=== PATIENT | female | born 1950 | race Caucasian/White ===

== ENCOUNTER 2017-11-21 11:20 | Day surgery (SDC) | payer BC, MEDICARE ==
[~2017-11-21] VITALS: Ht 149.9 cm; Wt 62.4 kg
[~2017-11-21 11:20] MED LIST: ASPI-1264 PO; CLOP75TA35 PO; SIMV40TA PO; VALA-7 PO
[2017-11-21] MEDS ORDERED: ATOR40TA3 PO (12:14)
[2017-11-21] MEDS ORDERED: DABI150C PO (12:14)
[2017-11-21] MEDS ORDERED: METO25TA6 PO (12:15)
[2017-11-21 12:31] VITALS: BP 101/56
[2017-11-21] MEDS ORDERED: LIDOcaine 1.5% w/epinephrine 1:200,000 5ml ampul ONE (13:25)
[2017-11-21] MEDS ORDERED: LIDOcaine 1%/PF (10mg/ml) 5ml vial ONE (13:25)
[2017-11-21] MEDS ORDERED: OXAZEpam 15mg capsule PO PRN (14:10)
[2017-11-21] MEDS ORDERED: ondansetron/PF 4mg/2ml inj IV PRN (14:10)
[2017-11-21] MEDS ORDERED: proCHLORperazine 10 MG/2 ml inj IV PRN (14:10)
[2017-11-21 14:30] VITALS: BP 110/78
== END 2017-11-21 14:30 | disposition home or self-care (01) ==
LOC: SSTAY O 11:20
PROVIDERS: ATTEND Internal Medicine Interventional Cardiology
DX: Z45.09 Encounter for adjustment and management of other cardiac device (principal); I48.92 Unspecified atrial flutter; E78.5 Hyperlipidemia, unspecified; Z86.73 Personal history of transient ischemic attack (TIA), and cerebral infarction without residual deficits; Z98.890 Other specified postprocedural states; Z79.899 Other long term (current) drug therapy; Z87.891 Personal history of nicotine dependence; Z72.89 Other problems related to lifestyle
CPT/HCPCS: 33284; 99152; J3490; A4620; J2001; J7030